=== PATIENT | male | born 1940 | race Caucasian/White ===

== ENCOUNTER → 2018-07-17 | Outpatient (CLI) | payer MEDICARE ==
--- NOTE | 2018-07-17 09:35 | CT ---
EXAM DESCRIPTION: CTA Abdomen: Computed Tomography. CLINICAL HISTORY: RECTAL BLEEDING. Possible ischemic colitis. COMPARISON: CT scan abdomen and pelvis with IV contrast. TECHNIQUE: CT angiography of the abdominal aorta and both lower extremities is performed during rapid bolus administration of IV contrast media. Three-dimensional volume-rendering imaging is reviewed along with 2.5 x 2.5 mm source images, and 2.0 mm coronal and sagittal reformats. Total Exam DLP: 2820.61 mGy-cm. This exam was performed according to our departmental CT dose-optimization program which includes automated exposure control, adjustment of the mA and/or kV according to patient size and/or use of iterative reconstruction technique; to reduce radiation dose to as low as reasonably achievable (ALARA). FINDINGS: Upper abdominal aorta: Minimal atherosclerotic calcification and intimal wall thickening. Calcification of the celiac axis but no poststenotic dilation. Calcification of the origin of the SMA without poststenotic dilation. Mid-abdominal aorta: Calcification of the origin of the bilateral single renal arteries. No poststenotic dilation. Minimal calcification of the aorta with no aneurysm or stenosis. Distal abdominal aorta: Calcification moderate but no significant narrowing or aneurysm. Origin of the OC is unremarkable. Common iliacs: Moderate calcification bilaterally caliber is minimally reduced. Internal iliacs: Moderate calcification bilaterally. Caliber is minimally reduced. Bilateral external iliac arteries: Unremarkable. Bilateral PRECIPITATOR's: Moderate calcification minimal narrowing no aneurysm or stenosis. Other: Please see abdominal pelvis CT scan with IV contrast examination and report. No contrast extravasation. IMPRESSION: Moderate atherosclerotic calcification of the abdominal aorta and iliac arteries with minimal narrowing. No aneurysm. No significant stenosis. No contrast extravasation. Electronically signed by: Panchito Bucio MD 07/17/2018 9:31 AM [facility]
--- NOTE | 2018-07-17 10:40 | CT ---
EXAM DESCRIPTION: CTA Pelvis: Computed Tomography. CLINICAL HISTORY: 77 years Male RECTAL BLEEDING COMPARISON: None. TECHNIQUE: Spiral-axial scans at 2.5 x 2.5 mm intervals through the abdomen and pelvis, after nonionic IV contrast and water-soluble oral contrast. Axial 2.5 mm reconstructions. Coronal and sagittal 2.0 mm reconstructions. Delayed scans, liver through the pelvis. Axial-spiral 5mm. No adverse reactions. Total Exam DLP: 1398.50 mGy-cm. This exam was performed according to our departmental dose-optimization program which includes automated exposure control, adjustment of the mA and/or kV according to patient size and/or use of iterative reconstruction technique; to reduce radiation dose to as low as reasonably achievable (ALARA). Technically mildly difficult study due to patient body habitus. FINDINGS: Lung bases and pleura: Scarring inferior lingula. Bilateral pleural thickening. Scarring and atelectasis minimal bilateral bases. Coronary artery calcifications. Pacing leads. Liver, Stomach, Spleen, Adrenal Glands: Negative. Pancreas, Gallbladder, Ducts: Surgical clips in the gallbladder fossa with no fluid. Minimal dilation common bile duct and distal right and left hepatic ducts. Kidneys and Ureters: Small cysts in the right kidney. Mesentery: Unremarkable. Aorta: Please see CTA abdominal aorta and report on the same visit. Small Bowel: Diffuse gas and fluid but no distention or significant air-fluid levels. No abnormal enhancement. No mucosal thickening or pneumatosis in the bowel wall. Terminal Ileum/Cecum: Minimal thickening of the appendix with, fatty density, central calcification; normal density of the surrounding fat with no inflammatory changes. Colon: Diffuse fecal material. Moderate redundancy of the sigmoid colon. No complications. No abnormal enhancement. No mucosal thickening or pneumatosis in the bowel wall. Pelvic Organs: Normal density of the urinary bladder. Prostate gland abutting the base of the bladder. Spine and Bony Pelvis: Decreased bone density. Spondylosis in the included thoracic segments. Abdominal Wall/Back Soft Tissues: bilateral fatty inguinal hernias not containing bowel. Anterior protrusion of the abdominal cavity at the umbilicus without herniation. IMPRESSION: 1. No bowel obstruction. No mucosal thickening or bowel wall thickening. No pneumatosis in the bowel wall. No free air or ascites. 2. Prior cholecystectomy. Common bile duct dilatation is physiologic. 3. Small cysts in the right kidney. Bilateral fatty inguinal hernias not containing bowel. Electronically signed by: Panchito Bucio MD 07/17/2018 10:38 AM [facility]
== END ==
LOC: CT 06:44
PROVIDERS: ATTEND Family Medicine
DX: K92.1 Melena (principal); K40.20 Bilateral inguinal hernia, without obstruction or gangrene, not specified as recurrent; I70.0 Atherosclerosis of aorta; I70.8 Atherosclerosis of other arteries; N28.1 Cyst of kidney, acquired; Z90.49 Acquired absence of other specified parts of digestive tract

== ENCOUNTER → 2018-08-25 | Outpatient (CLI) | payer MEDICARE ==
--- NOTE | 2018-08-25 14:21 | US ---
EXAM DESCRIPTION: Venous,Lower Extremity RT CLINICAL HISTORY: EDEMA of the right lower extremity COMPARISON: None Available. TECHNIQUE: Right lower extremity venous duplex FINDINGS: Doppler evaluation of the right lower extremity deep veins was performed. Normal color flow is seen in the common femoral, superficial femoral, profunda femoral and greater saphenous veins. Normal flow is seen in the popliteal vein and veins below the knee in the calf. Normal venous compressibility and flow augmentation. IMPRESSION: Negative for evidence of deep venous thrombosis on right lower extremity venous Doppler sonogram. Electronically signed by: Jus Crespo MD 08/25/2018 2:18 PM CDT
== END ==
LOC: US 09:27
PROVIDERS: ATTEND Family Medicine
DX: R60.0 Localized edema (principal); E53.8 Deficiency of other specified B group vitamins; R53.83 Other fatigue

== ENCOUNTER → 2018-11-13 | Outpatient (CLI) | payer MEDICARE | LOC: GMAM 10:53 | PROVIDERS: ATTEND Family Medicine | DX: E53.8 Deficiency of other specified B group vitamins (principal); I10 Essential (primary) hypertension; E11.9 Type 2 diabetes mellitus without complications ==

== ENCOUNTER → 2019-02-20 | Outpatient (CLI) | payer MEDICARE | LOC: GMAM 10:41 | PROVIDERS: ATTEND Family Medicine | DX: E53.8 Deficiency of other specified B group vitamins (principal); I10 Essential (primary) hypertension; E11.9 Type 2 diabetes mellitus without complications; Z12.5 Encounter for screening for malignant neoplasm of prostate | CPT/HCPCS: 82607; G0103 ==

== ENCOUNTER → 2019-11-29 | Outpatient (CLI) | payer MEDICARE ==
--- NOTE | 2019-11-29 13:10 | CT ---
EXAM DESCRIPTION: Chest w/Contrast CLINICAL HISTORY: 79 years, Male, STERNAL MANUBRIAL DISLOCATION COMPARISON: Chest x-ray November 24, 2007, x-ray sternum November 12, 2019 TECHNIQUE: Thin-section noncontrast axial CT images are obtained according to our protocol. Reconstructed MPR images are created and reviewed as well. FINDINGS: Lungs: No consolidating pulmonary infiltrate or groundglass infiltrate. Discoid atelectasis in the lingula. Minimal subpleural partial volume loss in the lower lobes anterior to small pleural effusions. No worrisome pulmonary mass or nodule. 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 Mediastinum: Lymph nodes are normal in size. Normal vascular contours. Heart size is normal with no pericardial effusion. Extensive coronary arterial calcification. Chest wall/axilla: No mass or adenopathy. Sternotomy wires are present. Metal artifacts from pacer power source over the left chest. Pacer wires are in the right heart. Lower neck/supraclavicular: No mass or adenopathy. Normal appearance of the thyroid gland. Upper abdomen: Unremarkable upper abdominal viscera. Coronal and sagittal reformatted images confirm the findings. Clinical history is sternomanubrial dislocation. The manubrium and sternal body appear normally aligned. Normal alignment at the sternoclavicular joints. IMPRESSION: Small bilateral pleural effusions. Extensive coronary calcification This exam was performed according to our departmental dose-optimization program, which includes automated exposure control, adjustment of the mA and/or kV according to patient size and/or use of iterative reconstruction technique. Total DLP equals 1009.68 mGycm. Electronically signed by: Jus Crespo MD 11/29/2019 1:08 PM CDT
== END ==
LOC: CT 08:30
PROVIDERS: ATTEND Family Medicine
DX: Z01.812 Encounter for preprocedural laboratory examination (principal); I10 Essential (primary) hypertension; I34.0 Nonrheumatic mitral (valve) insufficiency; I34.1 Nonrheumatic mitral (valve) prolapse; I51.7 Cardiomegaly; I25.10 Atherosclerotic heart disease of native coronary artery without angina pectoris; J90 Pleural effusion, not elsewhere classified; S22.2 Fracture of sternum

== ENCOUNTER → 2020-07-31 | Outpatient (CLI) | payer MEDICARE | LOC: RESP 08:00 | PROVIDERS: ATTEND Psychiatry & Neurology Neurology | DX: J43.9 Emphysema, unspecified (principal) ==